=== PATIENT | female | born 1975 | race Caucasian/White ===

== ENCOUNTER 2022-07-15 12:20 | Emergency (ER) | payer BC, SELFPAY ==
[2022-07-15 12:39] VITALS: BP 111/64; PULSE 91; RESP 18; TEMP 37; O2SAT 99
[2022-07-15 12:40] VITALS: BP 111/64; PULSE 91; RESP 18; TEMP 37; O2SAT 99
--- NOTE | 2022-07-15 12:58 | ED.GENADULT ---
HPI - General Adult General Chief complaint: Dental/Oral Stated complaint: Toothache Time Seen by Provider: 07/15/22 12:58 Source: patient, RN notes reviewed and old records reviewed Mode of arrival: ambulatory Limitations: no limitations History of Present Illness HPI narrative: 47-year-old female presents to the [facility] with complaints of dental pain to the left lower bicuspid. Patient states that she had all the teeth in the upper jaw and removed recently, going for a fitting in a couple of weeks to get dentures. Started with this discomfort a couple of days ago. No treatment prior to arrival. Very poor dentition with multiple decay. Related Data Home Medications Medication Instructions Recorded Confirmed bupropion HCl 300 mg 24 hr tablet, 300 mg PO DIRECTED 07/15/22 07/15/22 extended release citalopram 40 mg tablet 40 mg PO DIRECTED 07/15/22 07/15/22 trazodone 100 mg tablet 100 mg PO DIRECTED 07/15/22 07/15/22 Allergies Allergy/AdvReac Type Severity Reaction Status Date / Time No Known Allergies Allergy Verified 07/15/22 12:39 Review of Systems Review of Systems: All systems reviewed & are unremarkable except as noted in HPI and below Constitutional: Constitutional: Reports no additional constitutional complaints Eyes: Eyes: Reports no additional eye complaints ENT: Reports as per HPI and Reports dental pain Cardiovascular: Cardiovascular: Reports no additional cardiovascular complaints, Denies chest pain and Denies dyspnea Respiratory: Respiratory: Reports no additional respiratory complaints, Denies chest congestion, Denies cough and Denies dyspnea Gastrointestinal: Gastrointestinal: Reports no additional gastrointestinal complaints, Denies abdominal pain, Denies nausea and Denies vomiting Musculoskeletal: Musculoskeletal: Reports no additional musculoskeletal complaints Integumentary/Breasts: Skin/Breast: Reports system reviewed and no additional complaints, except as docu Neurologic: Reports system reviewed and no additional complaints, except as documented Psychiatric: Psychiatric: Reports no additional psychiatric complaints Allergic/Immunologic: Allergic/Immunologic: Reports no additional allergic/immunologic complaints PMFSH Past Medical History Medical History (Updated 07/15/22 @ 18:52 by Catherine Borges APRN) Anxiety and depression Comments At the time of my signature, I reviewed and agree with the nursing past medical, surgical, social, and family history. There is no relevant family history pertinent to the patient complaint. Exam Const: General: cooperative, healthy appearing, comfortable, no acute distress, well developed, alert and well nourished Nutritional Appearance: well nourished Orientation/consciousness: patient oriented x3 Limitations: no limitations HENMT: Head: normal to inspection Ears: hearing grossly normal bilaterally and external ears normal Face/Nose/Sinus: Normal external nose present, Normal nares present, Normal nasal mucous membranes and turbinates present and normal facial exam Face and sinus: normal facial exam Mouth: Yes Normal oral and palatal mucosa present, Yes lip normal and Yes moist mucous membranes Teeth and gingiva: abnormal tooth and associated gingiva (The gingiva around 21 and 22 swollen, anterior portion fluctuance.), caries and poor dentition Throat: posterior oropharynx normal and uvula midline Eyes: General: appearance normal, both eyes and all related structures Alignment and Position: alignment normal Periorbital: periorbital findings normal Pupils: Equal, round and reactive pupils present EOM: EOMs intact bilaterally Neck: Neck: normal visual inspection, full ROM, no lymphadenopathy and no meningeal signs Chest: Chest palpation & inspection: normal inspection of the chest Resp: Effort & Inspection: normal respiratory effort and able to speak in complete sentences Cardio: Rate: regular rate Rhythm: regular rhythm
== END 2022-07-15 13:05 | disposition home or self-care (01) ==
PROVIDERS: Emergency Provider Nurse Practitioner
DX: K04.7 Periapical abscess without sinus (principal); K02.9 Dental caries, unspecified; F41.9 Anxiety disorder, unspecified; F32.A Depression, unspecified
CPT/HCPCS: 99203; G0463

== ENCOUNTER 2023-01-06 11:07 | Emergency (ER) | payer BC, SELFPAY ==
--- NOTE | ~2023-01-06 | XR_ITS ---
Clinical Indication: Congestion, cough PA and lateral views of the chest: Comparison: None Findings: The lungs are clear, without evidence of focal consolidation or pleural effusion. Cardiome diastinal silhouette is within normal limits. Bones and soft tissues are unremarkable. Impression: Normal chest. Reviewed, dictated and finalized at location . ING EQUIPMENT OPERATOR Impression: Normal chest.
--- NOTE | 2023-01-06 11:11 | ED.URI ---
HPI - URI/Sore Throat General Chief Complaint: Upper Respiratory Infection Stated Complaint: chest congestion Time Seen by Provider: 01/06/23 11:11 Source: patient Mode of arrival: ambulatory Limitations: no limitations History of Present Illness HPI Narrative: Arlet is a 47-year-old female patient presenting to the clinic today with complaints of chest congestion times 1.5 weeks. She reports her chest is very rattly and she is having a cough but is nonproductive. Has been trying to take Mucinex to make it productive. Reports some mild shortness of breath and burning in her chest when she coughs. [place] feverish and had headaches earlier in the week. Took 2 at home COVID test and were negative. She has been a cigarette smoker since she was 14 MD elicited complaint: cough and other (Chest congestion) Related Data Home Medications Medication Instructions Recorded Confirmed bupropion HCl 300 mg 24 hr tablet, 300 mg PO DIRECTED 07/15/22 01/06/23 extended release citalopram 40 mg tablet 40 mg PO DIRECTED 07/15/22 01/06/23 trazodone 100 mg tablet 100 mg PO DIRECTED 07/15/22 01/06/23 topiramate 25 mg capsule,extended 25 mg PO DAILY 01/06/23 01/06/23 release 24 hr Allergies Allergy/AdvReac Type Severity Reaction Status Date / Time No Known Allergies Allergy Verified 01/06/23 11:22 Review of Systems Review of Systems: Pertinent positives per HPI. Patient denies any fever, chills, rash, headache, visual changes, dizziness, shortness of breath, chest pain, palpitations, nausea, vomiting, diarrhea, constipation, abdominal pain, or any urinary issues. PMFSH Past Medical History Medical History Anxiety and depression Comments At the time of my signature, I reviewed and agree with the nursing past medical, surgical, social, and family history. There is no relevant family history pertinent to the patient complaint. Exam Narrative: General: Well-developed, well nourished, in no apparent distress Head: Normocephalic, atraumatic Eyes: Pupils equally round and reactive to light bilaterally, EOM intact, sclera and conjunctive clear, no discharge, lids normal Ears: TMs intact and clear, ear canals clear, no drainage, grossly hearing normal. Nose: Nares patent, no discharge, no inflammation, no sinus tenderness. Mouth: Oral pharynx without lesions or masses, good dentition, MMM. Neck: Supple, trachea midline, no enlargement of anterior or posterior cervical nodes, no thyroid masses or goiter palpable. Cardio: Regular rate and rhythm, s1 and s2 normal, no murmur appreciated. Resp: Expiratory wheezing and inspiratory rhonchi, no rales or rubs Course Course Emergency Course: Portions of this record may have been created with voice recognition software. Level of Care: Express Care Visit Vital Signs Vital signs: Vital signs reviewed MDM - URI/Sore Throat MDM Narrative Medical decision making narrative: At the time of visit patient is resting comfortably on the exam table. Chest x-ray was performed Differential Diagnosis Differential diagnosis: Likely upper respiratory infection, otitis media, sinusitis, viral infection, bronchitis, influenza, pharyngitis and other (COVID) Imaging Data Radiologist's impression: ITS Impressions Chest X-Ray 01/06/23 11:25 Impression: Normal chest. Discharge Plan Discharge Clinical Impression: Bronchitis Patient Disposition: Home, Self-Care Condition: Stable Instructions: Antibiotic Form, Acute Bronchitis (ED) Additional Instructions: Take prescription medications only as prescribed-prednisone and albuterol inhaler Increase fluids and stay well hydrated Tylenol/motrin for pain/fever Flonase and OTC antihistamines as directed Vicks vapor rub to open sinuses Sinus rinses for congestion Cepacol spray, cough drops, throat lozenges, warm tea with honey/lemon,
[2023-01-06 11:12] VITALS: BP 103/62; PULSE 88; RESP 16; TEMP 36.4; O2SAT 99
== END 2023-01-06 11:30 | disposition home or self-care (01) ==
PROVIDERS: Emergency Provider Nurse Practitioner Family
DX: J40 Bronchitis, not specified as acute or chronic (principal); F17.210 Nicotine dependence, cigarettes, uncomplicated; F41.9 Anxiety disorder, unspecified; F32.A Depression, unspecified
CPT/HCPCS: 71046; 99213; G0463

== ENCOUNTER 2023-02-04 17:04 | Emergency (ER) | payer BC, SELFPAY ==
--- NOTE | ~2023-02-04 | XR_ITS ---
EXAMINATION: XR chest 2V Exam Date/Time: 02/04/2023 17:42 DIRECTOR HARDWARE HISTORY: SOB/COUGH/WHEEZING FOR 1 MONTH. Comparison: 01/06/2023. RESULT: Lines, tubes, and devices: None. Lungs and pleura: Multifocal patchy subsegmental areas of airspace disease in the bilateral lower [place] ngs. Cardiomediastinal silhouette: Stable. Other: No acute osseous or upper abdominal finding. IMPRESSION: Patchy bilateral lower lung airspace disease concerning for pneumonia. Reviewed, dictated and finalized at location K. [employer]OR HARDWARE
[2023-02-04 17:12] VITALS: BP 105/62; PULSE 85; RESP 18; TEMP 36.7; O2SAT 99
--- NOTE | 2023-02-04 17:26 | ED.URI ---
HPI - URI/Sore Throat General Chief Complaint: Upper Respiratory Infection Stated Complaint: Cough; Fever; Diarrhea Time Seen by Provider: 02/04/23 17:26 Source: patient Mode of arrival: ambulatory Limitations: no limitations History of Present Illness HPI Narrative: 47-year-old female presented for complaint of cough for 1 month. Endorses shortness of breath with talking and walking, fever, and fatigue for 1 week. Fever up to 102 2 days ago. Also reports left forehead headache, diarrhea, and nausea x4 days. LBM yesterday, states it is more formed, but appetite remains decreased. Pt was seen on 01/06, dx bronchitis and has been taking inhaler and steroid as directed, without much improvement in the cough. Taking Motrin and Mucinex. Related Data Home Medications Medication Instructions Recorded Confirmed bupropion HCl 300 mg 24 hr tablet, 300 mg PO DIRECTED 07/15/22 02/04/23 extended release citalopram 40 mg tablet 40 mg PO DIRECTED 07/15/22 02/04/23 trazodone 100 mg tablet 100 mg PO HS 07/15/22 02/04/23 topiramate 100 mg capsule 100 mg PO DAILY 02/04/23 02/04/23 sprinkle,extended release 24 hr Allergies Allergy/AdvReac Type Severity Reaction Status Date / Time No Known Allergies Allergy Verified 02/04/23 17:26 Review of Systems Review of Systems: CONSTITUTIONAL: Reports fever, chills, or sweats. EYES: Denies visual changes, redness, or discharge. ENT: Denies rhinorrhea, congestion, sore throat, or otalgia. CARDIOVASCULAR: Denies chest pain, palpitations, or edema. RESPIRATORY: Reports cough, sob, wheezing. GASTROINTESTINAL: Denies abdominal pain, vomiting, Reports nausea, diarrhea. GENITOURINARY: Denies dysuria or hematuria. SKIN: Denies rash, itching, or wounds. MUSCULOSKELETAL: Denies back pain, joint pain, or myalgia. NEUROLOGIC: Denies headache, numbness, tingling, or weakness. All systems reviewed & are unremarkable except as noted in HPI and below PMFSH Past Medical History Medical History Anxiety and depression Comments At time of signature, I have reviewed and agree with nursing past medical, surgical, social and family history unless otherwise noted. Please see nursing chart for further information. There is no relevant family history pertinent to the presenting complaint Exam Narrative: GENERAL: Well-appearing, in no acute distress. EYES: EOMI. No redness or drainage. Conjunctivae normal. ENT: Mucous membranes pink and moist. No rhinorrhea. TMs normal bilaterally. Throat normal. Uvula midline. NECK: Normal AROM. CHEST: No respiratory distress. End inspiratory Wheezing to all lewis. Speaks full sentences without difficulty. HEART: Regular rate and rhythm. No murmur appreciated. ABDOMEN: Soft, nontender, nondistended, normal active bowel sounds. EXTREMITIES: Normal range of motion. No edema. SKIN: Warm, dry, no rash. Capillary refill normal. Normal skin turgor. NEURO: Alert and oriented x3. Gait steady. PSYCH: Normal affect. Course Course Emergency Course: Patient is aware of diagnosis, understands and agrees to treatment plan. Anticipatory guidance given. Patient agrees to follow-up as directed and is aware of reasons to seek care at the emergency department. Portions of this record may have been created with voice recognition software Level of Care: Express Care Visit Vital Signs Vital signs: Vital Signs Temperature 98.1 F 02/04/23 17:12 Pulse Rate 85 02/04/23 17:12 Respiratory Rate 18 02/04/23 17:12 Blood Pressure 105/62 02/04/23 17:12 Pulse Oximetry 99 02/04/23 17:12 Oxygen Delivery Room Air 02/04/23 17:12 Temperature 98.1 F 02/04/23 17:12 Pulse Rate 85 02/04/23 17:12 Respiratory Rate 18 02/04/23 17:12 Blood Pressure 105/62 02/04/23 17:12 Pulse Oximetry 99 02/04/23 17:12 Oxygen Delivery Room Air 02/04/23 17:12 MDM - URI/Sore Throat
== END 2023-02-04 18:15 | disposition home or self-care (01) ==
PROVIDERS: Emergency Provider Nurse Practitioner Family
DX: J18.9 Pneumonia, unspecified organism (principal); F41.9 Anxiety disorder, unspecified; F32.A Depression, unspecified
CPT/HCPCS: 71046; 99213; G0463

== ENCOUNTER 2023-11-20 13:19 | Emergency (ER) | payer OTHER, SELFPAY ==
[2023-11-20 13:30] VITALS: BP 98/71; PULSE 81; RESP 18; TEMP 36.9; O2SAT 99
--- NOTE | 2023-11-20 13:54 | ED.DENTAL ---
HPI - Dental/Oral General Chief complaint: Dental/Oral Stated complaint: Toothache History of Present Illness HPI Narrative: patient is a 48-year-old female, past medical history significant for depression, migraine headaches and pneumonia, presents to [facility] with recurring left lower dental pain as she is awaiting dental follow-up with plan to arrange for dentures on the lower as she already has dentures on her uppers, noting over the past several days, she has had increased pain to her 1st premolar and 1st molar in the left lower with some swelling to the gingiva. She denies associated fevers. She has also had some URI symptoms, including nasal congestion and a cough. She has no sublingual swelling, she denies difficulty swallowing. She is taking [id number] Tylenol for discomfort without much relief, prompting her visit. Related Data Home Medications Medication Instructions Recorded Confirmed bupropion HCl 300 mg 24 hr tablet, 300 mg PO DAILY 07/15/22 11/20/23 extended release citalopram 40 mg tablet 40 mg PO DAILY 07/15/22 11/20/23 trazodone 100 mg tablet 100 mg PO HS 07/15/22 11/20/23 aripiprazole 2 mg tablet 2 mg PO DAILY 11/20/23 11/20/23 buspirone 10 mg tablet See Rx Instructions .Route .COMPLEX 11/20/23 11/20/23 sumatriptan succinate 25 mg tablet 25 mg PO DAILY 11/20/23 11/20/23 topiramate 50 mg tablet See Rx Instructions .Route 11/20/23 11/20/23 .COMPLEX PRN headache Allergies Allergy/AdvReac Type Severity Reaction Status Date / Time No Known Allergies Allergy Verified 11/20/23 13:45 Review of Systems ENT: Comments: Refer to HPI Respiratory: Comments: refer to HPI [facility] Past Medical History Medical History Anxiety and depression Exam Const: General: cooperative, healthy appearing, comfortable, no acute distress and well developed Nutritional Appearance: average body habitus Orientation/consciousness: oriented to person, oriented to place, oriented to time and patient oriented x3 HENMT: Head: normal to inspection and normocephalic Ears: hearing grossly normal bilaterally, external ears normal and TM's normal bilaterally Face/Nose/Sinus: Normal external nose present and Normal nares present Mouth: Yes Normal oral and palatal mucosa present and Yes lip normal Teeth and gingiva: abnormal tooth and associated gingiva lower left first molar tender and other ( gross decay present) and gingiva abnormal edematous and discolored ( erythema surrounding the affected tooth, no fluctuant abscess noted) Throat: posterior oropharynx normal, tonsils normal and uvula midline Other: no trismus, mild swelling noted correlating with the affected teeth, no sublingual swelling, no submental node palpable Eyes: General: appearance normal, both eyes and all related structures Eyelids: eyelids normal Sclera: sclerae normal Pupils: Equal, round and reactive pupils present EOM: EOMs intact bilaterally Neck: Neck: normal visual inspection, full ROM, no lymphadenopathy and no meningeal signs Thyroid: thyroid normal Lymphatic: no lymphadenopathy noted Resp: Effort & Inspection: normal respiratory effort Auscultation: clear to auscultation bilaterally Cardio: Jugular venous distension: no JVD Rate: regular rate Rhythm: regular rhythm Heart sounds: S1 normal heart sound present and S2 normal heart sound present Peripheral pulses: Peripheral pulses 2+ throughout Skin: General skin exam: normal color and no rashes or lesions noted Rashes: no rashes Wounds: no wounds Neuro: General: oriented to person, oriented to place, oriented to time and patient oriented x3 Cranial nerves: Yes CN's II-XII intact bilaterally Extrem: General: normal to inspection, full ROM and capillary refill normal Course Course Emergency Course: plan to treat with Augmentin for dental abscess, [id number] probiotic is encouraged common dental follow-
[2023-11-20 13:55] VITALS: BP 136/55; PULSE 60; RESP 18; TEMP 36.7; O2SAT 99
== END 2023-11-20 14:05 | disposition home or self-care (01) ==
PROVIDERS: Emergency Provider Nurse Practitioner Family
DX: K02.9 Dental caries, unspecified (principal); G50.1 Atypical facial pain; F41.9 Anxiety disorder, unspecified; F32.A Depression, unspecified
CPT/HCPCS: 99213; G0463